=== PATIENT | male | born 1975 | race Caucasian/White ===

== ENCOUNTER 2017-12-18 12:30 | Emergency (ER) | payer BC ==
[2017-12-18 12:40] VITALS: BP 130/91; PULSE 89; O2SAT 98
--- NOTE | 2017-12-18 12:50 | ERPHSYRPT ---
- History of Present Illness Time Seen by Provider: 12/18/17 12:46 Source: patient Exam Limitations: no limitations Patient Subjective Stated Complaint: pt reports being dx with flu a few days ago-reports cough fever et body aches-states that it feels like the cough is down in his lungs now Triage Nursing Assessment: pt flushed warm et [id number] noted-lungs clear et equal bilaterally-no retractions noted Physician History: 42-year-old white male arrives with complaint of cough fever bodyaches sore throat symptoms since one week ago. Patient feels like he is coughing nonproductive feels like the cough is moved into his chest. He does state that his was diagnosed with the flu several days ago. Past medical history negative. Past surgical history includes cholecystectomy and tonsillectomy. Social history occasional alcohol no tobacco Timing/Duration: week(s) (one week) Severity: moderate Modifying Factors: Improves With: nothing Associated Symptoms: cough, chills, fever, other (sore throat), No nausea, No vomiting, No abdominal pain, No shortness of breath, No heartburn, No diaphoresis, No chest pain, No headaches, No loss of appetite, No malaise, No rash, No syncope, No seizure, No weakness Allergies/Adverse Reactions: levofloxacin [From Levaquin] Allergy (Severe, Verified 12/18/17 12:42) throat closing Hx Tetanus, Diphtheria Vaccination/Date Given: Yes Hx Influenza Vaccination/Date Given: No Hx Pneumococcal Vaccination/Date Given: No Immunizations Up to Date: Yes - Review of Systems Constitutional: Fever, Chills, Malaise, No Fatigue, No Lethargy, No Night Sweats , No Weakness, No Weight Loss Eyes: No Symptoms Ears, Nose, & Throat: Throat Pain, No Ear Pain, No Ear Discharge, No Hearing Changes, No Tinnitus, No Nose Pain, No Nose Congestion, No Nose Discharge, No Sinus Drainage, No Epistaxis, No Mouth Pain, No Mouth Swelling, No Loose Teeth, No Throat Swelling, No Hoarse, No Painful Swallowing, No Snoring, No Stridor Respiratory: Cough, No Cyanosis, No Dyspnea, No Dyspnea on Exertion (ECKERT), No Stridor, No Wheezing Cardiac: No Chest Pain, No Edema, No Syncope Abdominal/Gastrointestinal: No Abdominal Pain, No Nausea, No Vomiting, No Diarrhea Genitourinary Symptoms: No Dysuria Musculoskeletal: No Back Pain, No Neck Pain Skin: No Rash Neurological: No Dizziness, No Focal Weakness, No Sensory Changes Psychological: No Symptoms Endocrine: No Symptoms All Other Systems: Reviewed and Negative - Past Medical History Pertinent Past Medical History: No - Past Surgical History Past Surgical History: No Gastrointestinal: Cholecystectomy Other Surgical History: tonsillectomy - Social History Smoking Status: Never smoker Exposure to second hand smoke: No Drug Use: none Patient Lives Alone: No - Nursing Vital Signs Nursing Vital Signs: Initial Vital Signs Temperature 99.3 F 12/18/17 12:36 Pulse Rate 89 12/18/17 12:36 Respiratory Rate 20 12/18/17 12:36 Blood Pressure 130/91 12/18/17 12:36 O2 Sat by Pulse Oximetry 98 12/18/17 12:36 Pain Scale Pain Intensity 2 - Physical Exam General Appearance: mild distress Eye Exam: PERRL/EOMI, eyes nml inspection Ears, Nose, Throat Exam: TMs normal, moist mucous membranes, pharyngeal erythema , No pharynx normal, No dry mucous membranes, No TM abnormal (R), No TM abnormal (L), No tonsillar exudate Neck Exam: normal inspection, non-tender, supple, full range of motion Respiratory Exam: normal breath sounds, lungs clear, No respiratory distress Cardiovascular Exam: regular rate/rhythm, normal heart sounds, normal peripheral pulses Gastrointestinal/Abdomen Exam: soft, normal bowel sounds, No tenderness, No mass Back Exam: normal inspection, normal range of motion, No CVA tenderness, No vertebral tenderness Extremity Exam: normal inspection, normal range of motion, pelvis stable Neurologic Exam: alert, oriented x 3, cooperative, honey liquefier II-XII nml as tested, normal mood/affect, nml cerebellar function, nml station & gait, sensation nml, No motor deficits SpO2 Interpretation: normal (98%) SpO2: 98 Oxygen Delivery: Room Air - Course Nursing assessment & vital signs reviewed: Yes - Radiology Exams Chest X-ray Interpretation: Discussed w/ radiologist (chest x-ray: Impression: Portable chest slightly underinflated with hazy right perihilar opacity concerning for airspace disease. Remaining heart-lung and bony thorax unremarkable) Ordered Tests: Active Orders 24 hr Category Date Time Status CHEST 1 VIEW (PORTABLE) Stat Exams 12/18/17 12:46 Completed CULTURE, THROAT Stat Lab 12/18/17 12:40 Received STREP SCREEN-BETA A Stat Lab 12/18/17 12:40 Completed Medication Summary Discontinued Medications Generic Name Dose Route Start Last Admin Trade Name Justyna PRN Reason Stop Dose Admin Ceftriaxone Sodium 1,000 mg 12/18/17 13:22 Rocephin 1000 Mg Inj IM 12/18/17 13:23 STAT ONE Lab/Rad Data: Laboratory Results 12/18/17 Range/Units 12:40 Streptococcus Screen NEGATIVE (Negative) - Progress Progress: improved Progress Note: 12/18/17 13:24 Patient with perihilar airspace disease on chest x-ray. Patient states he's been coughing for a week. His was diagnosed with the flu Friday but she has gotten over it. Will go ahead and give patient 1 g of Rocephin IM and sent home on Zithromax give a slip for today and tomorrow. Diagnosis pneumonia. It is possible patient could've had the flu but he has had symptoms for a week. - Departure Time of Disposition: 13:25 Departure Disposition: Home Clinical Impression: Pneumonia Qualifiers: Pneumonia type: due to unspecified organism Laterality: right Lung location: unspecified part of lung Qualified Code(s): J18.9 - Pneumonia, unspecified organism Condition: Fair Critical Care Time: No Referrals: JH CAIN MD [Primary Care Provider] - Additional Instructions: Return home. Plenty of fluids Tylenol every 4 hours as needed for pain or temperature greater than 100.5. Zithromax Z-JOSE as directed. Follow-up with your family doctor if symptoms are worse, no better in 48 hours, or persist longer than 72 hours. Return for acute distress or for severe symptoms. Prescriptions: Azithromycin 250 mg [Zithromax 250 MG TABLET] 0 mg PO ZPACK #6 tablet
--- NOTE | 2017-12-18 13:12 | XRAY ---
Indication: Fever and cough. Comparison: None Portable chest slightly underinflated with hazy right perihilar opacity concerning for air space disease. Remaining heart, lungs, and bony thorax unremarkable.
[2017-12-18] MEDS ORDERED: Rocephin 1000 MG INJ IM ONE (13:22)
[2017-12-18] MEDS ORDERED: Rocephin 1000 MG INJ ONE (13:41)
== END 2017-12-18 14:02 | disposition home or self-care (01) ==
LOC: ED 12:30
DX: J18.9 Pneumonia, unspecified organism (principal)
CPT/HCPCS: 71045; 87070; 87430; 96360; 96361; 96372; 96374; 99284; J0696

== ENCOUNTER 2017-12-20 13:17 | Inpatient (IN) | payer BC ==
[2017-12-20] MEDS ORDERED: DUONEB 0.5-3 MG/3 ml Neb IH ONE ×2 (13:29→13:53)
[2017-12-20 13:59] LABS: BASOPHIL % 0.2 % (0.0-0.4); Basophil (Absolute #) 0.01 (0-0.4); Eosinophil (Absolute #) 0 (0-0.5); Granulocyte Absolute (ANC) 3.61 (1.4-6.9); Granulocytes % 79.6 % (36.0-66.0); Hematocrit 43.5 % (42-50); Hemoglobin 13.7 gm/dl (12.5-18.0); Lymphocyte (Absolute #) 0.76 (1.0-4.6); Lymphocytes % 16.7 % (24.0-44.0); Mean Cell Volume 71.9 fl (78-100); Mean Corpuscular Hemoglobin 22.6 pg (26-32); Mean Corpuscular Hgb Concent. 31.5 g/dl (32-36); Mean Platelet Volume 10.4 fl (6-9.5); Monocyte (Absolute #) 0.16 (0.0-1.3); Monocytes % 3.5 % (0.0-12.0); Platelet Count 204 K/mm3 (150-450); Red Blood Count 6.05 M/mm3 (4.1-5.6); Red Cell Distribution Width 17.5 % (11.5-14.0); White Blood Count 4.5 K/mm3 (4.0-10.5)
--- NOTE | 2017-12-20 14:05 | ERPHSYRPT ---
- History of Present Illness Time Seen by Provider: 12/20/17 13:32 Source: patient Exam Limitations: no limitations Patient Subjective Stated Complaint: increasing sob over the past few days. recently dx with pneumonia after having influenza A. was seen in er and given zpak. states is not getting any better Triage Nursing Assessment: ambulated to room per self. sob noted. breath sounds coarse. occasional dry cough. Physician History: This is a 42-year-old white male essentially with negative past medical history. Patient had a recent diagnosis of flu he had come into the emergency room on the with complaint of shortness of breath. He was noted to have a slightly underinflated hazy appearance to the right heart border concerning for a pulmonic process. Patient was given albuterol treatment placed on Zithromax and discharged. Patient arrives she states that he is short of breath he doesn't feel like he is getting any better. He states he feel like he had a fever but has not taken his temperature patient arrives with pulse ox of around 88% on room air. Past medical history negative past surgical history tonsillectomy and cholecystectomy. Social history positive occasional alcohol use Timing/Duration: day(s) (patient's short of breath for several days, seen here in the emergency room on DEC * @)!*) Modifying Factors: Improves With: nothing Associated Symptoms: constant, cough, fever (PATIENT STATES HE FELT HOT), wheezing, productive cough, No chest pain/discomfort, No edema, No insomnia, No loss of appetite, No lightheadedness, No weakness, No ankle swelling, No chills , No hemoptysis, No calf pain, No dizziness, No heaviness, No heart racing, No lightheadedness, No leg swelling, No muscle spasms feet, No muscle spasms hands , No painful breathing, No tightness, No tingling face International travel in last 2 weeks: No Allergies/Adverse Reactions: levofloxacin [From Levaquin] Allergy (Severe, Verified 12/18/17 12:42) throat closing Hx Tetanus, Diphtheria Vaccination/Date Given: Yes Hx Influenza Vaccination/Date Given: No Hx Pneumococcal Vaccination/Date Given: No - Review of Systems Constitutional: Fever, Malaise, No Chills, No Fatigue, No Lethargy, No Night Sweats, No Weakness, No Weight Loss Eyes: No Symptoms, No Eye Pain, No Eye Redness, No Itchy, No Photophobia, No Tearing, No Vision Changes, No Double Vision, No Foreign Body Sensation Ears, Nose, & Throat: No Symptoms, No Ear Pain, No Ear Discharge, No Hearing Changes, No Tinnitus, No Nose Pain, No Nose Congestion, No Nose Discharge, No Sinus Drainage, No Epistaxis, No Mouth Pain, No Mouth Swelling, No Loose Teeth, No Throat Pain, No Throat Swelling, No Hoarse, No Painful Swallowing, No Snoring , No Stridor Respiratory: Cough, Dyspnea, Wheezing Cardiac: No Chest Pain, No Edema, No Syncope Abdominal/Gastrointestinal: No Abdominal Pain, No Nausea, No Vomiting, No Diarrhea Genitourinary Symptoms: No Dysuria Musculoskeletal: Myalgias, No Arthralgias, No Neck Pain, No Deformity, No Fall, No Injury, No Joint Redness, No Joint Pain, No Joint Swelling Skin: No Rash Neurological: No Dizziness, No Focal Weakness, No Sensory Changes Psychological: No Symptoms Endocrine: No Symptoms All Other Systems: Reviewed and Negative - Past Medical History Pertinent Past Medical History: No - Past Surgical History Past Surgical History: Yes Gastrointestinal: Cholecystectomy Other Surgical History: tonsillectomy - Social History Smoking Status: Never smoker Exposure to second hand smoke: No Drug Use: none Patient Lives Alone: No - Nursing Vital Signs Nursing Vital Signs: Initial Vital Signs Respiratory Rate 20 12/20/17 13:37 O2 Sat by Pulse Oximetry 87 L 12/20/17 13:37 Pain Scale Pain Intensity 7 - Physical Exam General Appearance: mild distress Eye Exam: PERRL/EOMI Ears, Nose, Throat Exam: hearing grossly normal, normal ENT inspection, normal pharynx, No abnormal TM (R), No abnormal TM (L), No sinus pain/drainage, No hearing decreased, No nasal congestion, No pharyngeal erythema, No tonsillar exudate, No tonsillar swelling Neck Exam: normal inspection, supple Respiratory Exam: diminished breath sounds, other (FREQUENT COUGH) Cardiovascular/Chest Exam: normal heart sounds, regular rate/rhythm Abdominal/Gastrointestinal Exam: soft, No tenderness, No distention, No mass Extremity Exam: non-tender, normal range of motion, normal inspection, no calf tenderness, no pedal edema Neurologic Exam: alert, oriented x 3, cooperative, affirmative action officer II-XII nml as tested, sensation nml, No motor deficits Skin Exam: normal color, warm, No dry SpO2 Interpretation: borderline oxygenation SpO2: 95 Oxygen Delivery: Nasal Cannula - Course Nursing assessment & vital signs reviewed: Yes EKG Interpreted by Me: RATE (87 bpm), Sinus Rhythm, NORMAL AXIS, Other (EKG: Sinus rhythm 87 bpm, normal axis, no acute ST or T wave changes noted) Ordered Tests: Active Orders 24 hr Category Date Time Status Lift Supervisor STAT Care 12/20/17 14:05 Active EKG-ER Only STAT Care 12/20/17 14:05 Active IV Insertion STAT Care 12/20/17 13:58 Active Pulse Oximetry (ED) STAT Care 12/20/17 13:29 Active CHEST 1 VIEW (PORTABLE) Stat Exams 12/20/17 13:30 Taken BLOOD CULTURE Stat Lab 12/20/17 14:45 Ordered CBC W DIFF Stat Lab 12/20/17 13:40 Completed CMP Stat Lab 12/20/17 13:40 Completed CULTURE,SPUTUM Stat Lab 12/20/17 14:45 Uncollected NT PRO BNP Stat Lab 12/20/17 13:40 Completed VENOUS BLOOD GAS Stat Lab 12/20/17 14:08 Completed Respiratory Nebulizer STAT RT 12/20/17 13:30 Active Medication Summary Generic Name Dose Route Start Last Admin Trade Name Freq PRN Reason Stop Dose Admin Sodium Chloride 1,000 mls @ 125 mls/hr 12/20/17 13:30 12/20/17 14:07 Sodium Chloride 0.9% 1000 Ml IV 01/19/18 13:29 125 mls/hr .Q8H MARELY Administration Ceftriaxone Sodium/Dextrose 1 g in 50 mls @ 100 mls/hr 12/20/17 14:45 Rocephin 1 Gm-D5w 50 Ml Bag IV 12/20/17 15:14 STAT STA Discontinued Medications Generic Name Dose Route Start Last Admin Trade Name Freq PRN Reason Stop Dose Admin Albuterol/Ipratropium 3 ml 12/20/17 13:29 12/20/17 13:55 Duoneb 0.5-3 Mg/3 Ml Neb IH 12/20/17 13:30 3 ml STAT ONE Administration Albuterol/Ipratropium Confirm 12/20/17 13:53 Duoneb 0.5-3 Mg/3 Ml Neb Administered 12/20/17 13:54 Dose 3 ml IH .STK-MED ONE Methylprednisolone Sodium Succinate 80 mg 12/20/17 14:59 Solu-Medrol 125 Mg IV 12/20/17 15:00 STAT ONE Lab/Rad Data: Laboratory Result Diagrams 12/20/17 13:40 12/20/17 13:40 Laboratory Results 12/20/17 12/20/17 12/20/17 Range/Units 14:08 13:40 13:40 WBC 4.5 (4.0-10.5) K/mm3 RBC 6.05 H (4.1-5.6) M/mm3 Hgb 13.7 (12.5-18.0) gm/dl Hct 43.5 (42-50) % MCV 71.9 L (78-100) fl MCH 22.6 L (26-32) pg MCHC 31.5 L (32-36) g/dl RDW 17.5 H (11.5-14.0) % Plt Count 204 (150-450) K/mm3 MPV 10.4 H (6-9.5) fl Gran % 79.6 H (36.0-66.0) % Lymphocytes % 16.7 L (24.0-44.0) % Monocytes % 3.5 (0.0-12.0) % Eosinophils % 0.0 (0.00-5.0) % Basophils % 0.2 (0.0-0.4) % Basophils # 0.01 (0-0.4) VBG pH 7.37 (7.32-7.42) VBG pCO2 at Pat Temp 54 (42-55) mm/Hg VBG pO2 at Pat Temp 13 L (25-40) mm/Hg VBG HCO3 31.2 H* (22-28) meq/L VBG O2 Sat (Tiffanie) 18.2 L (95-100) VBG Base Excess 4.4 H (-2.0-2.0) VBG Hemoglobin 14.5 VBG Carboxyhemoglobin 1.3 (0.0-6.9) % T HGB POC Potassium 4.0 (3.5-5.1) Sodium 134 L (136-145) mEq/L Potassium 4.0 (3.5-5.1) mEq/L Chloride 98 (98-107) mEq/L Carbon Dioxide 27.5 (21-32) mEq/L Anion Gap 12.7 (5-15) MEQ/L BUN 10 (9-20) mg/dL Creatinine 1.33 H (0.55-1.30) mg/dl Estimated GFR > 60 ML/MIN Glucose 113 H (70-110) MG/DL Calcium 8.5 (8.5-10.1) mg/dL Total Bilirubin 0.30 (0.2-1.0) mg/dL AST 74 H (15-37) U/L ALT 91 H (12-78) U/L Alkaline Phosphatase 108 (46-116) U/L NT-Pro-B Natriuret Pep 47 (0-125) pg/ml Serum Total Protein 7.3 (6.4-8.2) gm/dL Albumin 2.8 L (3.4-5.0) g/dL - Progress Progress: improved Air Movement: fair Progress Note: 12/20/17 15:01 42-year-old white male seen here December 18, 2017 secondary to shortness of breath. He hasn't had influenza the week prior to this. He was seen noted to have a right perihilar infiltrate given Rocephin and sent home with Zithromax. He states that he continues to feel short of breath she is aching all over. On arrival he had pulse oximetry of 88%. Patient is given 3 L oxygen didn't nasal cannula pulse ox is up to 95% he is given an albuterol treatment he's been given IV normal saline at 125 per hour blood cultures have been ordered sputum cultures have been ordered patient has been ordered to have Rocephin. I've discussed the case with Dr. Cain will admit patient for pneumonia place him on telemetry continue IV Rocephin, continue by mouth Zithromax continue Solu-Medrol 80 mg IV every 6 hours. - Departure Time of Disposition: 15:02 Departure Disposition: Observation Clinical Impression: Shortness of breath, Hypoxia Pneumonia Qualifiers: Pneumonia type: due to unspecified organism Laterality: bilateral Lung location : unspecified part of lung Qualified Code(s): J18.9 - Pneumonia, unspecified organism Condition: Fair Critical Care Time: No Referrals: JH CAIN MD [Primary Care Provider] -
[2017-12-20] MEDS: Sodium Chloride 0.9% 1000 ML 1,000 ML IV SCH ×2 (14:07→17:43)
[2017-12-20 14:15] LABS: VBG BASE EXCESS 4.4 (-2.0-2.0); VBG CARBOXYHEMOGLOBIN 1.3 % T HGB (0.0-6.9); VBG HCO3- 31.2 meq/L (22-28); VBG HEMOGLOBIN 14.5; VBG O2 SATURATION 18.2 (95-100); VBG pH 7.37 (7.32-7.42)
[2017-12-20 14:30] LABS: ALBUMIN 2.8 g/dL (3.4-5.0); ALKALINE PHOSPHATASE 108 U/L (46-116); ANION GAP 12.7 MEQ/L (5-15); BLOOD UREA NITROGEN 10 mg/dL (9-20); CHLORIDE 98 mEq/L (98-107); Calcium 8.5 mg/dL (8.5-10.1); Carbon Dioxide 27.5 mEq/L (21-32); Creatinine 1 1.33 mg/dl (0.55-1.30); EST GLOMERULAR FILTRATION RATE > 60 ML/MIN; Glucose 113 MG/DL (70-110); NT PRO BNP 47 pg/ml (0-125); SGOT/AST 74 U/L (15-37); SGPT/ALT 91 U/L (12-78); SODIUM 134 mEq/L (136-145); Total Protein 7.3 gm/dL (6.4-8.2)
[2017-12-20] MEDS ORDERED: ROCEPHIN 1 Gm-D5w 50 ml Bag** 1 G/50 ML IVPB IV STA (14:45)
[2017-12-20] MEDS ORDERED: solu-MEDROL 125 MG IV ONE (14:59)
[2017-12-20] MEDS ORDERED: ROCEPHIN 1 Gm-D5w 50 ml Bag** 1 G/50 ML IVPB IV ONE (15:02)
[2017-12-20] MEDS ORDERED: solu-MEDROL 125 MG ONE (15:02)
[2017-12-20] MEDS ORDERED: DUONEB 0.5-3 MG/3 ml Neb IH PRN (15:38)
[2017-12-20] MEDS ORDERED: Sodium Chloride 0.9% 1000 ML 1,000 ML IV SCH (15:38)
[2017-12-20 17:13] LABS: A-aADO2 123; ABG HEMOGLOBIN 13.4; ABG POTASSIUM 4.3 (3.5-5.1); ABG SITE LEFT RADIAL; ALLEN TEST OK? YES; ARTERIAL BLOOD GAS BASE EXCESS 0.9 (-2.0-2.0); ARTERIAL BLOOD GAS FIO2 40 %; ARTERIAL BLOOD GAS PCO2 26 mmHg (35-45); ARTERIAL BLOOD GAS PO2 130 mmHg (75-100); ARTERIAL BLOOD GAS pH 7.54 (7.35-7.45); CARBOXYHEMOGLOBIN 2.1 % THgb (0.0-6.9); HCO3- 22.2 (22-28); HGB O2 SAT 97.3 g/dF (94-100); Methhemoglobin 0.6 % (1.4-1.5); paO2 pAO1 0.51
[2017-12-20] MEDS: TYLENOL 325 MG PO PRN (17:36)
--- NOTE | 2017-12-20 18:56 | XRAY ---
Indication: Short of breath. Comparison: December 18, 2017. Portable chest demonstrates worsening diffuse patchy bilateral airspace disease without consolidation/large effusion. Heart is not enlarged. Bony thorax intact.
[2017-12-20] MEDS: DUONEB 0.5-3 MG/3 ml Neb IH SCH ×2 (19:20→23:11)
[2017-12-20 19:37] LABS: A-aADO2 201; ABG HEMOGLOBIN 13.6; ABG POTASSIUM 4.3 (3.5-5.1); ARTERIAL BLD GAS O2 SATURATION 98.5 % (95-100); ARTERIAL BLOOD GAS BASE EXCESS 1.5 (-2.0-2.0); ARTERIAL BLOOD GAS FIO2 50 %; ARTERIAL BLOOD GAS PCO2 34 mmHg (35-45); ARTERIAL BLOOD GAS PO2 113 mmHg (75-100); ARTERIAL BLOOD GAS pH 7.47 (7.35-7.45); CARBOXYHEMOGLOBIN 1.1 % THgb (0.0-6.9); HCO3- 24.7 (22-28); HGB O2 SAT 96.1 g/dF (94-100); Methhemoglobin 1.3 % (1.4-1.5); paO2 pAO1 0.36
[2017-12-20 19:38] LABS: ABG SITE RIGHT BRACHIAL
[2017-12-20] MEDS: solu-MEDROL 125 MG IV SCH (23:46)
[2017-12-21] MEDS: Sodium Chloride 0.9% 1000 ML 1,000 ML IV SCH ×3 (01:47→21:59)
[2017-12-21] MEDS: DUONEB 0.5-3 MG/3 ml Neb IH SCH ×6 (03:09→23:17)
[2017-12-21] MEDS: solu-MEDROL 125 MG IV SCH ×3 (05:25→17:17)
[2017-12-21 05:39] LABS: Granulocyte Absolute (ANC) 2.88 (1.4-6.9); Hematocrit 40.6 % (42-50); Hemoglobin 12.8 gm/dl (12.5-18.0); Mean Cell Volume 72.1 fl (78-100); Mean Corpuscular Hemoglobin 22.7 pg (26-32); Mean Corpuscular Hgb Concent. 31.5 g/dl (32-36); Mean Platelet Volume 10.5 fl (6-9.5); Platelet Count 198 K/mm3 (150-450); Red Blood Count 5.63 M/mm3 (4.1-5.6); Red Cell Distribution Width 17.1 % (11.5-14.0); White Blood Count 3.4 K/mm3 (4.0-10.5)
[2017-12-21 06:06] LABS: ALBUMIN 2.5 g/dL (3.4-5.0); ALKALINE PHOSPHATASE 95 U/L (46-116); ANION GAP 15.4 MEQ/L (5-15); BLOOD UREA NITROGEN 10 mg/dL (9-20); CHLORIDE 105 mEq/L (98-107); Calcium 8.2 mg/dL (8.5-10.1); Carbon Dioxide 22.6 mEq/L (21-32); Creatinine 1 0.95 mg/dl (0.55-1.30); EST GLOMERULAR FILTRATION RATE > 60 ML/MIN; Glucose 157 MG/DL (70-110); Potassium 4.3 mEq/L (3.5-5.1); SGOT/AST 48 U/L (15-37); SGPT/ALT 65 U/L (12-78); SODIUM 139 mEq/L (136-145); Total Protein 6.7 gm/dL (6.4-8.2)
[2017-12-21] MEDS: ROCEPHIN 1 Gm-D5w 50 ml Bag** 1 G/50 ML IVPB IV SCH (10:17)
[2017-12-21] MEDS: Zithromax 500 MG/ 250 ML NaCl Premix 500 MG/250 ML IVPB IV SCH (10:17)
[2017-12-21 10:22] LABS: Lymphocytes 14 % (24-44); Monocyte 2 % (0.0-12.0); Neutrophils 84 % (36.-66.); Total Cells Counted 100
[2017-12-21 10:23] LABS: Toxic Granulation 1+
[2017-12-21 10:24] LABS: Platelet Estimate NORMAL (NORMAL)
--- NOTE | 2017-12-21 12:11 | PCM.HP ---
History of Present Illness - Chief Complaint Chief Complaint: Shortness of Breath for 1 week History of Present Illness: This is a 42-year-old white male essentially with negative past medical history. Patient had a recent diagnosis of flu he had come into the emergency room on the with complaint of shortness of breath. He was noted to have a slightly underinflated hazy appearance to the right heart border concerning for a pulmonic process. Patient was given albuterol treatment placed on Zithromax and discharged. Patient arrives she states that he is short of breath he doesn't feel like he is getting any better. He states he feel like he had a fever but has not taken his temperature patient arrives with pulse ox of around 88% on room air. Past medical history negative past surgical history tonsillectomy and cholecystectomy. Social history positive occasional alcohol use Timing/Duration: day(s) (patient's short of breath for several days, seen here in the emergency room on DEC * @)!*) Modifying Factors: Improves With: nothing Associated Symptoms: constant, cough, fever (PATIENT STATES HE FELT HOT), wheezing, productive cough, No chest pain/discomfort, No edema, No insomnia, No loss of appetite, No lightheadedness, No weakness, No ankle swelling, No chills , No hemoptysis, No calf pain, No dizziness, No heaviness, No heart racing, No lightheadedness, No leg swelling, No muscle spasms feet, No muscle spasms hands , No painful breathing, No tightness, No tingling face International travel in last 2 weeks: No - Review of Systems Constitutional: No Fever, No Chills Eyes: No Symptoms Ears, Nose, & Throat: No Symptoms Respiratory: Cough, Short Of Breath Cardiac: No Chest Pain, No Edema, No Syncope Abdominal/Gastrointestinal: No Abdominal Pain, No Nausea, No Vomiting, No Diarrhea Genitourinary Symptoms: No Dysuria Musculoskeletal: No Back Pain, No Neck Pain Skin: No Rash Neurological: No Dizziness, No Focal Weakness, No Sensory Changes Psychological: No Symptoms Endocrine: No Symptoms Hematologic/Lymphatic: No Symptoms Immunological/Allergic: No Symptoms Medications & Allergies Home Medications: Home Medication List Azithromycin 250 mg [Zithromax 250 MG TABLET] 0 mg PO ZPACK #6 tablet 06/27 [Rx Confirmed 12/20/17] Allergies/Adverse Reactions: Allergies Allergy/AdvReac Type Severity Reaction Status Date / Time levofloxacin [From Levaquin] Allergy Severe throat Verified 12/18/17 12:42 closing - Past Medical History Past Medical History: No Neurological History: No Pertinent History ENT History: No Pertinent History Cardiac History: No Pertinent History Respiratory History: No Pertinent History Endocrine Medical History: No Pertinent History Musculoskelatal History: No Pertinent History GI Medical History: No Pertinent History History: No Pertinent History Pyscho-Social History: No Pertinent History Male Reproductive Disorders: No Pertinent History - Past Surgical History Past Surgical History: Yes Neuro Surgical History: No Pertinent History Cardiac History: No Pertinent History Respiratory Surgery: No Pertinent History GI Surgical History: Cholecystectomy Genitourinary Surgical Hx: No Pertinent History Musculskeletal Surgical Hx: No Pertinent History Male Surgical History: No Pertinent History Other Surgical History: tonsillectomy - Social History Smoking Status: Never smoker Exposure to second hand smoke: Yes Alcohol: Occasionally Drug Use: none - Physical Exam Vital Signs: Vital Signs - 24 hr Temp Pulse Resp BP Pulse Ox 12/21/17 11:30 98.3 F 71 24 131/83 90 L 12/21/17 11:00 78 20 94 L 12/21/17 07:16 98.8 F 75 22 141/81 94 L 12/21/17 07:00 58 L 24 94 L 12/21/17 04:00 99.3 F 72 26 H 134/71 95 12/21/17 03:09 72 26 H 95 12/20/17 23:40 99.3 F 67 24 128/70 95 12/20/17 23:11 67 28 H 95 12/20/17 19:37 99.7 F 76 32 H 120/62 95 12/20/17 19:20 80 22 98 12/20/17 17:56 92 H 24 96 12/20/17 16:05 86 20 94 L 12/20/17 15:58 98.7 F 81 22 136/73 94 L 12/20/17 15:37 98.7 F 81 22 136/73 94 L 12/20/17 15:13 88 22 133/103 95 12/20/17 15:03 95 12/20/17 13:58 84 22 95 12/20/17 13:56 98.8 F 91 H 20 153/88 87 L 12/20/17 13:37 20 87 L Oxygen-Last 24 hours O2 Percentage 50% O2 Percentage 50% O2 Percentage 50% O2 Percentage 50% O2 Percentage 3 Liters = 32% O2 Percentage 3 Liters = 32% O2 Percentage 3 Liters = 32% Oxygen Flowrate (L/min)-RT 40 General Appearance: no apparent distress, alert Neurologic Exam: alert, oriented x 3, cooperative, normal mood/affect, nml cerebellar function, nml station & gait, sensation nml, No motor deficits Eye Exam: PERRL/EOMI, eyes nml inspection Ears, Nose, Throat Exam: normal ENT inspection, TMs normal, pharynx normal, moist mucous membranes Neck Exam: normal inspection, non-tender, supple, full range of motion Respiratory Exam: rhonchi, wheezing, No respiratory distress Cardiovascular Exam: regular rate/rhythm, normal heart sounds, normal peripheral pulses Gastrointestinal/Abdomen Exam: soft, normal bowel sounds, No tenderness, No mass Back Exam: normal inspection, normal range of motion, No CVA tenderness, No vertebral tenderness Extremity Exam: normal inspection, normal range of motion, pelvis stable Skin Exam: normal color, warm, dry, No rash Lymphatic Exam: No adenopathy Results - Labs Lab/Micro Results: Lab Results-Last 24 Hours 12/20/17 12/20/17 12/21/17 Range/Units 17:08 19:30 05:20 WBC 3.4 L (4.0-10.5) K/mm3 RBC 5.63 H (4.1-5.6) M/mm3 Hgb 12.8 (12.5-18.0) gm/dl Hct 40.6 L (42-50) % MCV 72.1 L (78-100) fl MCH 22.7 L (26-32) pg MCHC 31.5 L (32-36) g/dl RDW 17.1 H (11.5-14.0) % Plt Count 198 (150-450) K/mm3 MPV 10.5 H (6-9.5) fl Segmented Neutrophils 84 H (36.-66.) % Lymphocytes (Manual) 14 L (24-44) % Monocytes (Manual) 2 (0.0-12.0) % Differential Comment NORMAL Toxic Granulation 1+ Platelet Estimate NORMAL (NORMAL) Puncture Site LEFT RADIAL RIGHT BRACHIAL pCO2 26 L 34 L (35-45) mmHg pO2 130 H* 113 H (75-100) mmHg Base Excess 0.9 1.5 (-2.0-2.0) O2 Saturation 97.3 96.1 (94-100) g/dF ABG pH 7.54 H 7.47 H (7.35-7.45) ABG HCO3 22.2 24.7 (22-28) ABG O2 Sat (Measured) 100.0 98.5 (95-100) % Simone Test YES NOT APPLICABLE A-a Gradient 123 201 a/A Ratio 0.51 0.36 Hemoglobin 13.4 13.6 Carboxyhemoglobin 2.1 1.1 (0.0-6.9) % THgb Methemoglobin 0.6 L 1.3 L (1.4-1.5) % Potassium 4.3 4.3 (3.5-5.1) Temperature 37.0 37.0 C POC O2 Flow Rate 40 50 % Sodium (136-145) mEq/L Chloride (98-107) mEq/L Carbon Dioxide (21-32) mEq/L Anion Gap (5-15) MEQ/L BUN (9-20) mg/dL Creatinine (0.55-1.30) mg/dl Estimated GFR ML/MIN Glucose (70-110) MG/DL Calcium (8.5-10.1) mg/dL Total Bilirubin (0.2-1.0) mg/dL AST (15-37) U/L ALT (12-78) U/L Alkaline Phosphatase (46-116) U/L Serum Total Protein (6.4-8.2) gm/dL Albumin (3.4-5.0) g/dL 12/21/17 Range/Units 05:20 WBC (4.0-10.5) K/mm3 RBC (4.1-5.6) M/mm3 Hgb (12.5-18.0) gm/dl Hct (42-50) % MCV (78-100) fl MCH (26-32) pg MCHC (32-36) g/dl RDW (11.5-14.0) % Plt Count (150-450) K/mm3 MPV (6-9.5) fl Segmented Neutrophils (36.-66.) % Lymphocytes (Manual) (24-44) % Monocytes (Manual) (0.0-12.0) % Differential Comment Toxic Granulation Platelet Estimate (NORMAL) Puncture Site pCO2 (35-45) mmHg pO2 (75-100) mmHg Base Excess (-2.0-2.0) O2 Saturation (94-100) g/dF ABG pH (7.35-7.45) ABG HCO3 (22-28) ABG O2 Sat (Measured) (95-100) % Simone Test A-a Gradient a/A Ratio Hemoglobin Carboxyhemoglobin (0.0-6.9) % THgb Methemoglobin (1.4-1.5) % Potassium 4.3 (3.5-5.1) Temperature C POC O2 Flow Rate % Sodium 139 (136-145) mEq/L Chloride 105 (98-107) mEq/L Carbon Dioxide 22.6 (21-32) mEq/L Anion Gap 15.4 H (5-15) MEQ/L BUN 10 (9-20) mg/dL Creatinine 0.95 (0.55-1.30) mg/dl Estimated GFR > 60 ML/MIN Glucose 157 H (70-110) MG/DL Calcium 8.2 L (8.5-10.1) mg/dL Total Bilirubin 0.20 (0.2-1.0) mg/dL AST 48 H (15-37) U/L ALT 65 (12-78) U/L Alkaline Phosphatase 95 (46-116) U/L Serum Total Protein 6.7 (6.4-8.2) gm/dL Albumin 2.5 L (3.4-5.0) g/dL - Other Procedures and Tests Respiratory Therapy 12/20/17 16:04 Respiratory Nebulizer UD 12/20/17 17:56 Oxygen High Flow High Flow 40 lpm 12/20/17 19:00 Respiratory Nebulizer Q4H Assessment/Plan (1) Influenza A Current Visit: Yes Status: Acute Assessment & Plan: Last Vital Signs Temp 98.3 F 12/21/17 11:30 Pulse 71 12/21/17 11:30 Resp 24 12/21/17 11:30 BP 131/83 12/21/17 11:30 Pulse Ox 90 L 12/21/17 11:30 Allergies levofloxacin [From Levaquin] Allergy (Severe, Verified 12/18/17 12:42) throat closing Active Medications Acetaminophen (Tylenol 325 Mg) 325 mg PO Q4H PRN PRN PRN Reason: PAIN, FEVER, HEADACHE Stop: 01/19/18 17:31 Last Admin: 12/20/17 17:36 Dose: 325 mg Albuterol/Ipratropium (Duoneb 0.5-3 Mg/3 Ml Neb) 3 ml IH Q4HPRN PRN PRN Reason: SHORTNESS OF BREATH/WHEEZING Stop: 01/19/18 15:37 Last Admin: 12/20/17 16:05 Dose: 3 ml Albuterol/Ipratropium (Duoneb 0.5-3 Mg/3 Ml Neb) 3 ml IH Q4HRT [facility] Stop: 01/19/18 18:59 Last Admin: 12/21/17 10:59 Dose: 3 ml Sodium Chloride (Sodium Chloride 0.9% 1000 Ml) 1,000 mls @ 125 mls/hr IV .Q8H [facility] Stop: 01/19/18 13:29 Last Admin: 12/21/17 10:16 Dose: 125 mls/hr Azithromycin (Zithromax 500 Mg/ 250 Ml Nacl Premix) 500 mg in 250 mls @ 250 mls /hr IV Q24H10 [facility] Stop: 01/20/18 09:59 Last Admin: 12/21/17 10:17 Dose: 250 mls/hr Ceftriaxone Sodium/Dextrose (Rocephin 1 Gm-D5w 50 Ml Bag) 1 g in 50 mls @ 100 mls/hr IV Q24H10 [facility] Stop: 01/20/18 09:59 Last Admin: 12/21/17 10:17 Dose: 100 mls/hr Sodium Chloride (Sodium Chloride 0.9% 1000 Ml) 1,000 mls @ 125 mls/hr IV .Q8H [facility] Stop: 01/19/18 15:37 Methylprednisolone Sodium Succinate (Solu-Medrol 125 Mg) 80 mg IV Q6HT [facility] Stop: 01/20/18 00:00 Last Admin: 12/21/17 11:23 Dose: 80 mg Intake & Output 12/21/17 12/22/17 11:59 11:59 Intake Total 2604 Output Total 4900 Balance -2296 Weight 109.7 kg Orders 12/20/17 16:04 Respiratory Nebulizer UD 12/20/17 17:32 Acetaminophen 325 mg [Tylenol 325 mg] 325 mg PO Q4H PRN PRN 12/20/17 17:56 Oxygen High Flow High Flow 40 lpm 12/20/17 19:00 Albuterol/Ipratropium 3ml Neb* [DUONEB 0.5-3 MG/3 ml Neb] 3 ml IH Q4HRT Respiratory Nebulizer Q4H 12/20/17 Dinner Regular Diet Lab Tests 12/20/17 12/20/17 12/20/17 13:40 13:40 14:08 WBC 4.5 RBC 6.05 H Hgb 13.7 Hct 43.5 MCV 71.9 L MCH 22.6 L MCHC 31.5 L RDW 17.5 H Plt Count 204 MPV 10.4 H Gran % 79.6 H Lymphocytes % 16.7 L Monocytes % 3.5 Eosinophils % 0.0 Basophils % 0.2 Segmented Neutrophils Lymphocytes (Manual) Monocytes (Manual) Basophils # 0.01 Differential Comment Toxic Granulation Platelet Estimate Puncture Site pCO2 pO2 Base Excess O2 Saturation ABG pH ABG HCO3 ABG O2 Sat (Measured) Simone Test VBG pH 7.37 VBG pCO2 at Pat Temp 54 VBG pO2 at Pat Temp 13 L VBG HCO3 31.2 H* VBG O2 Sat (Tiffanie) 18.2 L VBG Base Excess 4.4 H VBG Hemoglobin 14.5 VBG Carboxyhemoglobin 1.3 A-a Gradient a/A Ratio Hemoglobin Carboxyhemoglobin Methemoglobin POC Potassium 4.0 Temperature POC O2 Flow Rate Sodium 134 L Potassium 4.0 Chloride 98 Carbon Dioxide 27.5 Anion Gap 12.7 BUN 10 Creatinine 1.33 H Estimated GFR > 60 Glucose 113 H Calcium 8.5 Total Bilirubin 0.30 AST 74 H ALT 91 H Alkaline Phosphatase 108 NT-Pro-B Natriuret Pep 47 Serum Total Protein 7.3 Albumin 2.8 L 12/20/17 12/20/17 12/21/17 17:08 19:30 05:20 WBC 3.4 L RBC 5.63 H Hgb 12.8 Hct 40.6 L MCV 72.1 L MCH 22.7 L MCHC 31.5 L RDW 17.1 H Plt Count 198 MPV 10.5 H Gran % Lymphocytes % Monocytes % Eosinophils % Basophils % Segmented Neutrophils 84 H Lymphocytes (Manual) 14 L Monocytes (Manual) 2 Basophils # Differential Comment NORMAL Toxic Granulation 1+ Platelet Estimate NORMAL Puncture Site LEFT RADIAL RIGHT BRACHIAL pCO2 26 L 34 L pO2 130 H* 113 H Base Excess 0.9 1.5 O2 Saturation 97.3 96.1 ABG pH 7.54 H 7.47 H ABG HCO3 22.2 24.7 ABG O2 Sat (Measured) 100.0 98.5 Simone Test YES NOT APPLICABLE VBG pH VBG pCO2 at Pat Temp VBG pO2 at Pat Temp VBG HCO3 VBG O2 Sat (Tiffanie) VBG Base Excess VBG Hemoglobin VBG Carboxyhemoglobin A-a Gradient 123 201 a/A Ratio 0.51 0.36 Hemoglobin 13.4 13.6 Carboxyhemoglobin 2.1 1.1 Methemoglobin 0.6 L 1.3 L POC Potassium Temperature 37.0 37.0 POC O2 Flow Rate 40 50 Sodium Potassium 4.3 4.3 Chloride Carbon Dioxide Anion Gap BUN Creatinine Estimated GFR Glucose Calcium Total Bilirubin AST ALT Alkaline Phosphatase NT-Pro-B Natriuret Pep Serum Total Protein Albumin 12/21/17 05:20 WBC RBC Hgb Hct MCV MCH MCHC RDW Plt Count MPV Gran % Lymphocytes % Monocytes % Eosinophils % Basophils % Segmented Neutrophils Lymphocytes (Manual) Monocytes (Manual) Basophils # Differential Comment Toxic Granulation Platelet Estimate Puncture Site pCO2 pO2 Base Excess O2 Saturation ABG pH ABG HCO3 ABG O2 Sat (Measured) Simone Test VBG pH VBG pCO2 at Pat Temp VBG pO2 at Pat Temp VBG HCO3 VBG O2 Sat (Tiffanie) VBG Base Excess VBG Hemoglobin VBG Carboxyhemoglobin A-a Gradient a/A Ratio Hemoglobin Carboxyhemoglobin Methemoglobin POC Potassium Temperature POC O2 Flow Rate Sodium 139 Potassium 4.3 Chloride 105 Carbon Dioxide 22.6 Anion Gap 15.4 H BUN 10 Creatinine 0.95 Estimated GFR > 60 Glucose 157 H Calcium 8.2 L Total Bilirubin 0.20 AST 48 H ALT 65 Alkaline Phosphatase 95 NT-Pro-B Natriuret Pep Serum Total Protein 6.7 Albumin 2.5 L we'll admit the patient. We will continue oxygen bronchodilators treatment. Patient has been diagnosed with influenza one week ago and has not developed any symptomatic relief and has developed pneumonia. At this point of time will start IV antibiotic but we will hold onto starting Tamiflu as patient is out of the window of treatment.. Code(s): J10.1 - FLU DUE TO OTH IDENT INFLUENZA VIRUS W OTH RESP MANIFEST (2) Failure of outpatient treatment Current Visit: Yes Status: Acute Code(s): Z78.9 - OTHER SPECIFIED HEALTH STATUS (3) Hypoxia Current Visit: Yes Status: Acute Code(s): R09.02 - HYPOXEMIA (4) Pneumonia Current Visit: Yes Status: Acute Qualifiers: Pneumonia type: due to unspecified organism Laterality: bilateral Lung location: unspecified part of lung Qualified Code(s): J18.9 - Pneumonia, unspecified organism Code(s): J18.9 - PNEUMONIA, UNSPECIFIED ORGANISM
[2017-12-21] MEDS: TYLENOL 325 MG PO PRN (17:49)
[2017-12-22] MEDS: TYLENOL 325 MG PO PRN (00:20)
[2017-12-22] MEDS: solu-MEDROL 125 MG IV SCH ×3 (00:21→11:32)
[2017-12-22] MEDS: DUONEB 0.5-3 MG/3 ml Neb IH SCH ×6 (03:22→22:59)
[2017-12-22] MEDS: Sodium Chloride 0.9% 1000 ML 1,000 ML IV SCH ×2 (04:57→17:15)
[2017-12-22] MEDS: ROCEPHIN 1 Gm-D5w 50 ml Bag** 1 G/50 ML IVPB IV SCH (10:55)
[2017-12-22] MEDS: Zithromax 500 MG/ 250 ML NaCl Premix 500 MG/250 ML IVPB IV SCH (11:32)
--- NOTE | 2017-12-22 12:18 | PCM.NOTE ---
Date and Time: 12/22/171216 Subjective Assessment: doing better - Review of Systems Constitutional: No Fever, No Chills Eyes: No Symptoms Ears, Nose, & Throat: No Symptoms Respiratory: No Cough, No Short Of Breath Cardiac: No Chest Pain, No Edema, No Syncope Abdominal/Gastrointestinal: No Abdominal Pain, No Nausea, No Vomiting, No Diarrhea Genitourinary Symptoms: No Dysuria Musculoskeletal: No Back Pain, No Neck Pain Skin: No Rash Neurological: No Dizziness, No Focal Weakness, No Sensory Changes Psychological: No Symptoms Endocrine: No Symptoms Hematologic/Lymphatic: No Symptoms Immunological/Allergic: No Symptoms Objective Exam General Appearance: no apparent distress, alert Neurologic Exam: alert, oriented x 3, cooperative, normal mood/affect, nml cerebellar function, sensation nml, No motor deficits Skin Exam: normal color, warm, dry Eye Exam: PERRL, EOMI, eyes nml inspection Ears, Nose, Throat Exam: normal ENT inspection, pharynx normal, moist mucous membranes Neck Exam: normal inspection, non-tender, supple, full range of motion Respiratory Exam: normal breath sounds, lungs clear, No respiratory distress Cardiovascular Exam: regular rate/rhythm, normal heart sounds Gastrointestinal/Abdomen Exam: soft, No tenderness, No mass Extremity Exam: normal inspection, normal range of motion Back Exam: normal inspection, normal range of motion, No CVA tenderness, No vertebral tenderness Male Genitalia Exam: deferred Rectal Exam: deferred OBJECTIVE DATA Vital Signs: Vital Signs - 24 hr Temp Pulse Resp BP Pulse Ox 12/22/17 11:00 78 26 H 95 12/22/17 07:44 98.6 F 87 24 154/76 93 L 12/22/17 07:00 74 20 92 L 12/22/17 04:00 98.2 F 90 20 139/74 97 12/22/17 03:22 90 20 97 12/22/17 00:00 98.2 F 77 20 153/74 98 12/21/17 23:17 77 20 98 12/21/17 20:00 98.0 F 68 21 148/77 96 12/21/17 19:21 68 21 96 12/21/17 16:00 98.3 F 76 24 131/83 90 L 12/21/17 15:00 76 24 90 L Oxygen-Last 24 hours O2 Percentage 50% O2 Percentage 50% O2 Percentage 50% Pain Assessment - Last Documented Pain Intensity 0 Pain Scale Used 0-10 Pain Scale Intake and Output: Intake & Output 12/20/17 12/21/17 12/22/17 12/23/17 11:59 11:59 11:59 11:59 Intake Total 4069 Output Total 2975 Balance 1094 Weight 108.8 kg Multi-Disciplinary Progress Notes: Multi-Disciplinary Progress Notes 12/21/17 16:28 Respiratory Note by Rena Poe PT SPO2 88 AND COMPLAINING OF SOB. PLACED BACK ON HIFLOW 40LPM 50% Initialized on 12/21/17 16:28 - END OF NOTE Assessment/Plan (1) Influenza A Current Visit: Yes Status: Acute Code(s): J10.1 - FLU DUE TO OTH IDENT INFLUENZA VIRUS W OTH RESP MANIFEST (2) Failure of outpatient treatment Current Visit: Yes Status: Acute Code(s): Z78.9 - OTHER SPECIFIED HEALTH STATUS (3) Hypoxia Current Visit: Yes Status: Acute Code(s): R09.02 - HYPOXEMIA (4) Pneumonia Current Visit: Yes Status: Acute Qualifiers: Pneumonia type: due to unspecified organism Laterality: bilateral Lung location: unspecified part of lung Qualified Code(s): J18.9 - Pneumonia, unspecified organism Code(s): J18.9 - PNEUMONIA, UNSPECIFIED ORGANISM
[2017-12-22 13:41] LABS: ALBUMIN 2.5 g/dL (3.4-5.0); ALKALINE PHOSPHATASE 80 U/L (46-116); ANION GAP 14.3 MEQ/L (5-15); BLOOD UREA NITROGEN 13 mg/dL (9-20); CHLORIDE 108 mEq/L (98-107); Creatinine 1 0.98 mg/dl (0.55-1.30); EST GLOMERULAR FILTRATION RATE > 60 ML/MIN; Glucose 147 MG/DL (70-110); Potassium 4.4 mEq/L (3.5-5.1); SGOT/AST 52 U/L (15-37); SGPT/ALT 67 U/L (12-78); SODIUM 144 mEq/L (136-145); Total Protein 6.2 gm/dL (6.4-8.2)
[2017-12-22] MEDS: PROTONIX 40 MG IV IV SCH (13:58)
[2017-12-22] MEDS: Ativan 2 MG/1 ML VIAL IV PRN (14:08)
[2017-12-22 15:18] LABS: Granulocyte Absolute (ANC) 10.18 (1.4-6.9); Hematocrit 39.9 % (42-50); Mean Corpuscular Hgb Concent. 30.1 g/dl (32-36); Mean Platelet Volume 10.9 fl (6-9.5); Platelet Count 307 K/mm3 (150-450); Red Blood Count 5.39 M/mm3 (4.1-5.6); Red Cell Distribution Width 17.7 % (11.5-14.0); White Blood Count 11.4 K/mm3 (4.0-10.5)
[2017-12-22 15:22] LABS: Mean Corpuscular Hemoglobin 22.2 pg (26-32)
[2017-12-22 16:23] LABS: ANISOCYTOSIS 1+; BAND 2 % (0.0-2.0); Lymphocytes 6 % (24-44); Microcytosis 1+; Monocyte 3 % (0.0-12.0); Neutrophils 89 % (36.-66.); Platelet Estimate NORMAL (NORMAL); Total Cells Counted 100
[2017-12-22] MEDS: solu-MEDROL 40 MG IV SCH (22:09)
[2017-12-22] MEDS: Maxipime 2 GM** 2 G in Dextrose 5%/Water IV Soln. 100ML PLUS BAG 100 ML IV SCH (22:09)
[2017-12-23] MEDS: DUONEB 0.5-3 MG/3 ml Neb IH SCH ×4 (03:10→14:30)
[2017-12-23] MEDS: solu-MEDROL 40 MG IV SCH ×2 (05:00→14:47)
[2017-12-23] MEDS: Sodium Chloride 0.9% 1000 ML 1,000 ML IV SCH (05:00)
[2017-12-23 05:35] LABS: Hematocrit 39.5 % (42-50); Mean Cell Volume 73.3 fl (78-100); Mean Corpuscular Hgb Concent. 30.4 g/dl (32-36); Mean Platelet Volume 10.7 fl (6-9.5); Platelet Count 330 K/mm3 (150-450); Red Blood Count 5.39 M/mm3 (4.1-5.6); Red Cell Distribution Width 17.7 % (11.5-14.0); White Blood Count 12.7 K/mm3 (4.0-10.5)
[2017-12-23 05:54] LABS: Mean Corpuscular Hemoglobin 22.2 pg (26-32)
[2017-12-23 06:06] LABS: ALBUMIN 2.5 g/dL (3.4-5.0); ALKALINE PHOSPHATASE 74 U/L (46-116); ANION GAP 11.6 MEQ/L (5-15); BLOOD UREA NITROGEN 16 mg/dL (9-20); CHLORIDE 108 mEq/L (98-107); Calcium 8.1 mg/dL (8.5-10.1); Carbon Dioxide 27.1 mEq/L (21-32); Creatinine 1 1.04 mg/dl (0.55-1.30); EST GLOMERULAR FILTRATION RATE > 60 ML/MIN; Glucose 142 MG/DL (70-110); Potassium 4.4 mEq/L (3.5-5.1); SGOT/AST 77 U/L (15-37); SGPT/ALT 100 U/L (12-78); SODIUM 142 mEq/L (136-145); Total Protein 6.1 gm/dL (6.4-8.2)
--- NOTE | 2017-12-23 08:04 | CONS ---
CONSULT DATE: 12/22/2017 HISTORY: Tony Arriola is a 42 year-old male without any significant past medical problems, has been sick for about the past three weeks. The patient reported that he started having low grade fever with cough, shortness of breath off and on and was seen on 12/18/2017 in the emergency room. The patient apparently tested positive for influenza however was out of the window for treatment with Tamiflu and was discharged home on oral Zithromax. The patient reportedly got worse leading to another emergency room visit on 12/20/2017. He has since been admitted. A chest x-ray performed showed bilateral patchy infiltrate. At the time of my evaluation the patient is noted to have sputum productive of blood-tinged expectoration. He denies prior history of pulmonary problems. The patient was placed on CPAP with improvement in shortness of breath and hypoxemia. He denies any prior pulmonary problems. He did not get the influenza vaccine this month. PAST MEDICAL HISTORY: Negative for common medical problems. He is noted to have accelerated hypertension possibly due to some anxiety during this stay. PAST SURGICAL HISTORY: Negative. PERSONAL AND SOCIAL HISTORY: The patient works in a [employer]. He denies smoking, occasionally drinks alcohol. MEDICATIONS: Home and current medications are reviewed. ALLERGIES: LEVAQUIN. PHYSICAL EXAMINATION: This is a middle aged male who appears fairly comfortable on CPAP. Vital signs noted. HEENT: Normocephalic. Oral exam is limited. NECK: Supple. CVS: First and second heart sounds are normal, regular, rhythmic. RESPIRATORY: Shows diminished breath sounds. Scattered crackles heard. ABDOMEN: Obese. EXTREMITIES: No edema is noted. LABORATORY DATA AND TESTS: White blood cell count 11.4, hemoglobin 12, hematocrit 40, PLT 307,000. Sodium 144, potassium 4.4, chloride 108, bicarb 26, glucose 147, BUN 39, creatinine 0.9. AST 52. Blood cultures are negative. Chest x-ray noted. ASSESSMENT: This is a 42 year old male admitted with: 1) Acute hypoxic respiratory failure. 2) Bilateral patchy pulmonary infiltrate suggestive of possible secondary infection after influenza. 3) Hemoptysis secondary to #2. 4) Hypertension accelerated. RECOMMENDATIONS: Continue CPAP this will clearly help the patient. Will check sputum culture. Broaden antibiotics. Discontinue Rocephin. Change the patient to Maxipime 2 gm IV every 12 hours, continue Zithromax. Add Solu-Medrol as this is likely to help with gas exchange if there is interstitial edema. Clinically the patient does not appear to be volume overloaded. Will obtain CT chest with IV contrast and since we are giving IV with rule out pulmonary embolism. SCD's for deep venous thrombosis prophylaxis. Continue other supportive care. Repeat labs. If the patient fails to show any clinical improvement would consider transfer to [facility]. Discussed his plan of care with the patient and his . Thank you, Dr. Trevizo, for allowing me to participate in the care of Tony Arriola.
[2017-12-23 08:45] LABS: Slide Review YES
--- NOTE | 2017-12-23 08:57 | XRAY ---
Indication: Short of breath. Multiple contiguous axial images obtained through the chest using 80 cc Isovue 370 contrast and PE protocol. Comparison: None There is satisfactory opacification of the pulmonary arteries. No filling defect or pulmonary embolus. The heart is borderline enlarged without pericardial effusion. Aorta is normal in course and caliber. No pathologic mediastinal/hilar lymphadenopathy. Small hiatal hernia. Examination of the lung parenchyma demonstrates diffuse patchy airspace disease, greatest in the left lower lobe. Several of these opacities appear consolidating/organizing. No effusion. Bony thorax intact. Limited upper abdomen demonstrates previous cholecystectomy. Impression: 1. Negative pulmonary embolus. 2. Diffuse bilateral airspace disease, several appearing consolidating/organizing. 3. Incidental borderline cardiomegaly and small hiatal hernia. CT DI 23.40
[2017-12-23] MEDS: Zithromax 500 MG/ 250 ML NaCl Premix 500 MG/250 ML IVPB IV SCH (09:32)
[2017-12-23] MEDS: PROTONIX 40 MG IV IV SCH (09:32)
[2017-12-23] MEDS: Ativan 2 MG/1 ML VIAL IV PRN (09:32)
[2017-12-23] MEDS: Maxipime 2 GM** 2 G in Dextrose 5%/Water IV Soln. 100ML PLUS BAG 100 ML IV SCH (11:17)
[2017-12-23 11:39] VITALS: BP 140/63
--- NOTE | 2017-12-23 12:48 | PCM.DS ---
Discharge Summary Date of Admission: 12/20/17 15:34 Admitting Physician: JH CAIN Consults: Consults on Case 12/22/17 15:54 Consult Pulmonology ROUTINE Primary Care Provider: JH CAIN Allergies Allergies levofloxacin [From Levaquin] Allergy (Severe, Verified 12/18/17 12:42) throat closing Hospital Summary - Hospital Course Hospital Course: Last Vital Signs Temp 98.4 F 12/23/17 11:38 Pulse 99 H 12/23/17 11:38 Resp 18 12/23/17 11:38 BP 140/63 12/23/17 11:38 Pulse Ox 89 L 12/23/17 11:38 Allergies levofloxacin [From Levaquin] Allergy (Severe, Verified 12/18/17 12:42) throat closing Active Medications Acetaminophen (Tylenol 325 Mg) 325 mg PO Q4H PRN PRN PRN Reason: PAIN, FEVER, HEADACHE Stop: 01/19/18 17:31 Last Admin: 12/22/17 00:20 Dose: 325 mg Albuterol/Ipratropium (Duoneb 0.5-3 Mg/3 Ml Neb) 3 ml IH Q4HPRN PRN PRN Reason: SHORTNESS OF BREATH/WHEEZING Stop: 01/19/18 15:37 Last Admin: 12/20/17 16:05 Dose: 3 ml Albuterol/Ipratropium (Duoneb 0.5-3 Mg/3 Ml Neb) 3 ml IH Q4HRT [facility] Stop: 01/19/18 18:59 Last Admin: 12/23/17 11:00 Dose: 3 ml Sodium Chloride (Sodium Chloride 0.9% 1000 Ml) 1,000 mls @ 125 mls/hr IV .Q8H [facility] Stop: 01/19/18 13:29 Last Admin: 12/23/17 05:00 Dose: 125 mls/hr Azithromycin (Zithromax 500 Mg/ 250 Ml Nacl Premix) 500 mg in 250 mls @ 250 mls /hr IV Q24H10 [facility] Stop: 01/20/18 09:59 Last Admin: 12/23/17 09:32 Dose: 250 mls/hr Cefepime HCl 2 g/ Dextrose 100 mls @ 200 mls/hr IV Q12HT [facility] Stop: 01/21/18 21:59 Last Admin: 12/23/17 11:17 Dose: 200 mls/hr Lorazepam (Ativan 2 Mg/1 Ml Vial) 1 mg IV Q6H PRN PRN PRN Reason: ANXIETY Stop: 01/21/18 13:22 Last Admin: 12/23/17 09:32 Dose: 1 mg Methylprednisolone Sodium Succinate (Solu-Medrol 40 Mg) 40 mg IV Q8HT [facility] Stop: 12/23/17 14:01 Last Admin: 12/23/17 05:00 Dose: 40 mg Pantoprazole Sodium (Protonix 40 Mg Iv) 40 mg IV Q24H10 [facility] Stop: 01/21/18 13:29 Last Admin: 12/23/17 09:32 Dose: 40 mg Intake & Output 12/23/17 12/24/17 11:59 11:59 Intake Total 3928 Output Total 2820 Balance 1108 Weight 109.1 kg Orders 12/22/17 13:23 Lorazepam 2 mg/1 ml [Ativan 2 MG/1 ML VIAL] 1 mg IV Q6H PRN PRN 12/22/17 13:30 Pantoprazole 40 mg [Protonix 40 mg IV] 40 mg IV Q24H10 12/22/17 15:54 Consult Pulmonology ROUTINE 12/22/17 21:50 Flutter Therapy UD Lab Tests 12/22/17 12/22/17 12/23/17 13:13 13:13 05:00 WBC 11.4 H 12.7 H RBC 5.39 5.39 Hgb 12.0 L 12.0 L Hct 39.9 L 39.5 L MCV 74.0 L 73.3 L MCH 22.2 L 22.2 L MCHC 30.1 L 30.4 L RDW 17.7 H 17.7 H Plt Count 307 330 MPV 10.9 H 10.7 H Segmented Neutrophils 89 H Band Neutrophils 2 Lymphocytes (Manual) 6 L Monocytes (Manual) 3 Differential Comment ABNORMAL Platelet Estimate NORMAL Anisocytosis 1+ Microcytosis 1+ Sodium 144 Potassium 4.4 Chloride 108 H Carbon Dioxide 26.0 Anion Gap 14.3 BUN 13 Creatinine 0.98 Estimated GFR > 60 Glucose 147 H Calcium 8.0 L Total Bilirubin 0.20 AST 52 H ALT 67 Alkaline Phosphatase 80 Serum Total Protein 6.2 L Albumin 2.5 L Slides for Path Review YES 12/23/17 05:00 WBC RBC Hgb Hct MCV MCH MCHC RDW Plt Count MPV Segmented Neutrophils Band Neutrophils Lymphocytes (Manual) Monocytes (Manual) Differential Comment Platelet Estimate Anisocytosis Microcytosis Sodium 142 Potassium 4.4 Chloride 108 H Carbon Dioxide 27.1 Anion Gap 11.6 BUN 16 Creatinine 1.04 Estimated GFR > 60 Glucose 142 H Calcium 8.1 L Total Bilirubin 0.30 AST 77 H ALT 100 H Alkaline Phosphatase 74 Serum Total Protein 6.1 L Albumin 2.5 L Slides for Path Review Patient is still very hypoxic and may require increase level of care. So we will transfer patient to [facility] - Vitals & Intake/Output Vital Signs: Vital Signs Temperature 98.4 F 12/23/17 11:38 Pulse Rate 99 H 12/23/17 11:38 Respiratory Rate 18 12/23/17 11:38 Blood Pressure 140/63 12/23/17 11:38 O2 Sat by Pulse Oximetry 89 L 12/23/17 11:38 Oxygen-Last Documented O2 Percentage 50% Intake & Output: Intake & Output 12/21/17 12/22/17 12/23/17 12/24/17 11:59 11:59 11:59 11:59 Intake Total 2604 4429 3928 Output Total 4900 2975 2820 Balance -2296 1454 1108 Weight 109.7 kg 108.8 kg 109.1 kg - Lab Result Diagrams: 12/23/17 05:00 12/23/17 05:00 Lab Results-Last 24 Hrs: Lab Results-Last 24 Hours 12/22/17 12/22/17 12/23/17 Range/Units 13:13 13:13 05:00 WBC 11.4 H 12.7 H (4.0-10.5) K/mm3 RBC 5.39 5.39 (4.1-5.6) M/mm3 Hgb 12.0 L 12.0 L (12.5-18.0) gm/dl Hct 39.9 L 39.5 L (42-50) % MCV 74.0 L 73.3 L (78-100) fl MCH 22.2 L 22.2 L (26-32) pg MCHC 30.1 L 30.4 L (32-36) g/dl RDW 17.7 H 17.7 H (11.5-14.0) % Plt Count 307 330 (150-450) K/mm3 MPV 10.9 H 10.7 H (6-9.5) fl Segmented Neutrophils 89 H (36.-66.) % Band Neutrophils 2 (0.0-2.0) % Lymphocytes (Manual) 6 L (24-44) % Monocytes (Manual) 3 (0.0-12.0) % Differential Comment ABNORMAL Platelet Estimate NORMAL (NORMAL) Anisocytosis 1+ Microcytosis 1+ Sodium 144 (136-145) mEq/L Potassium 4.4 (3.5-5.1) mEq/L Chloride 108 H (98-107) mEq/L Carbon Dioxide 26.0 (21-32) mEq/L Anion Gap 14.3 (5-15) MEQ/L BUN 13 (9-20) mg/dL Creatinine 0.98 (0.55-1.30) mg/dl Estimated GFR > 60 ML/MIN Glucose 147 H (70-110) MG/DL Calcium 8.0 L (8.5-10.1) mg/dL Total Bilirubin 0.20 (0.2-1.0) mg/dL AST 52 H (15-37) U/L ALT 67 (12-78) U/L Alkaline Phosphatase 80 (46-116) U/L Serum Total Protein 6.2 L (6.4-8.2) gm/dL Albumin 2.5 L (3.4-5.0) g/dL Slides for Path Review YES 12/23/17 Range/Units 05:00 WBC (4.0-10.5) K/mm3 RBC (4.1-5.6) M/mm3 Hgb (12.5-18.0) gm/dl Hct (42-50) % MCV (78-100) fl MCH (26-32) pg MCHC (32-36) g/dl RDW (11.5-14.0) % Plt Count (150-450) K/mm3 MPV (6-9.5) fl Segmented Neutrophils (36.-66.) % Band Neutrophils (0.0-2.0) % Lymphocytes (Manual) (24-44) % Monocytes (Manual) (0.0-12.0) % Differential Comment Platelet Estimate (NORMAL) Anisocytosis Microcytosis Sodium 142 (136-145) mEq/L Potassium 4.4 (3.5-5.1) mEq/L Chloride 108 H (98-107) mEq/L Carbon Dioxide 27.1 (21-32) mEq/L Anion Gap 11.6 (5-15) MEQ/L BUN 16 (9-20) mg/dL Creatinine 1.04 (0.55-1.30) mg/dl Estimated GFR > 60 ML/MIN Glucose 142 H (70-110) MG/DL Calcium 8.1 L (8.5-10.1) mg/dL Total Bilirubin 0.30 (0.2-1.0) mg/dL AST 77 H (15-37) U/L ALT 100 H (12-78) U/L Alkaline Phosphatase 74 (46-116) U/L Serum Total Protein 6.1 L (6.4-8.2) gm/dL Albumin 2.5 L (3.4-5.0) g/dL Slides for Path Review - Radiology Exams Ordered Rad Exams-Entire Visit: Radiology Procedures Category Date Time Status CHEST WITH CONTRAST [CT] Routine Exams 12/22/17 18:36 Completed - Procedures and Test Procedures and Tests throughout Hospitalization: Therapy Orders & Screens 12/20/17 13:30 Respiratory Nebulizer STAT Comment: Diagnosis: Shortness of Breath 12/20/17 16:04 Respiratory Nebulizer UD Comment: BRY Q4PRN Diagnosis: Shortness of Breath 12/20/17 17:56 Oxygen High Flow High Flow 40 lpm Comment: Diagnosis: Shortness of Breath 12/20/17 19:00 Respiratory Nebulizer Q4H Comment: BRYB Q4 Diagnosis: Shortness of Breath 12/22/17 21:50 Flutter Therapy UD Comment: Diagnosis: PNEUMONIA, HYPOXIA, SOB, FAILED OUTPATIENT Discharge Exam General Appearance: no apparent distress, alert Neurologic Exam: alert, oriented x 3, cooperative, normal mood/affect, nml cerebellar function, sensation nml, No motor deficits Skin Exam: normal color, warm, dry Eye Exam: PERRL, EOMI, eyes nml inspection Ears, Nose, Throat Exam: normal ENT inspection, pharynx normal, moist mucous membranes Neck Exam: normal inspection, non-tender, supple, full range of motion Respiratory Exam: diminished breath sounds, prolonged expirations, crackles/ rales, rhonchi, No respiratory distress Cardiovascular Exam: regular rate/rhythm, normal heart sounds Gastrointestinal/Abdomen Exam: soft, No tenderness, No mass Extremity Exam: normal inspection, normal range of motion Back Exam: normal inspection, normal range of motion, No CVA tenderness, No vertebral tenderness Male Genitalia Exam: deferred Rectal Exam: deferred Final Diagnosis/Problem List - Final Discharge Diagnosis/Problem (1) Influenza A Current Visit: Yes Status: Acute (2) Failure of outpatient treatment Current Visit: Yes Status: Acute (3) Hypoxia Current Visit: Yes Status: Acute (4) Pneumonia Current Visit: Yes Status: Acute - Discharge Discharge Date: 12/23/17 [facility] Condition: Stable Prescriptions: No Action Azithromycin 250 mg [Zithromax 250 MG TABLET] 0 mg PO ZPACK #6 tablet Follow up with: JH CAIN MD [Primary Care Provider] -
[2017-12-23] MEDS ORDERED: Ativan 2 MG/1 ML VIAL IV ONE (14:08)
[2017-12-23 16:26] VITALS: PULSE 98; O2SAT 94
== END 2017-12-23 15:25 | disposition short-term general hospital (02) | DRG 193 ==
LOC: ED 13:17 → MED SURG 15:34 → OBSVTOIN 15:34 → INTOOBSV 12-21 13:30
PROVIDERS: ADMIT General Practice; ATTEND General Practice
DX: J10.1 Influenza due to other identified influenza virus with other respiratory manifestations (principal); J96.01 Acute respiratory failure with hypoxia; Z78.9 Other specified health status; R09.02 Hypoxemia; J18.9 Pneumonia, unspecified organism; I10 Essential (primary) hypertension
CPT/HCPCS: 36000; 36415; 36600; 71045; 71260; 80053; 82375; 82803; 82805; 83880; 85025; 85027; 87040; 87070; 93005; 93041; 93268; 94150; 94640; 94660; 94760; 96360; 96365; 96374; 99285; G0378; J0456; J0692; J0696; J2060; J2920; J2930; A9270-GY